=== PATIENT | female | born 1945 | race Caucasian/White ===

== ENCOUNTER 2017-03-15 14:05 | Emergency (ER) | payer MEDICARE, BC ==
--- NOTE | ~2017-03-15 | CR127 ---
[facility] A Service of [facility] RADIOLOGY TEXT RESULTS PATIENT: DHAVAL WARD LOCATION: SED : 45 UNIT #: [id number] AGE: [address]: Tj Kimball MD SEX: F ORDER DR: [id number] [address] [address] [id number] E MR#: [id number] Acc #: [id number] NAME: DHAVAL WARD : 1945 SEX: F STUDY DATE/TIME: 03/15/2017 14:25 UNIT: SED ROOM: STUDY DESCRIPTION: CR Foot Complete Min 3 View Rt Attending Physician: Tj Kimabll M.D. Ordering Physician: Tj Kimball M.D. Primary Care Physician: Kobe Montes M.D. MEDICAL IMAGING REPORT This report is preliminary unless electronic signature is present. EXAM Right foot series 03/15/2017 HISTORY Swelling, pain with knot on top of foot. Pain 2-3 days. Knot today. FINDINGS AP lateral and oblique radiographs of the right foot are presented. No traumatic fracture or malalignment. The joint spaces show mild interphalangeal joint narrowing. Mild degenerative change first metatarsophalangeal joint. No soft tissue defect, subcutaneous air or radiodense foreign body. Small plantar calcaneal spur. Dictated by... Charli Bergeron M.D. THIS IS AN ELECTRONICALLY VERIFIED REPORT Charli Bergeron M.D. at 03/16/2017 10:48 PM LUCILA/juana TD: 03/15/2017 23:39 JOB #: [id number] MEDICAL IMAGING REPORT Page 1 of 1
[~2017-03-15 14:05] MED LIST: ADVAIR 2501 DISK W/D PO; ASPIRIN PO; BACTRIM DS TABL1 TA1 PO; CRESTOR10 MG; LIPITOR PO; PROTONIX PO; SYNTHROID PO; VOLTAREN50 MG PO
== END 2017-03-15 15:31 | disposition home or self-care (01) ==
LOC: SED 14:05
DX: M19.071 Primary osteoarthritis, right ankle and foot (principal); R03.0 Elevated blood-pressure reading, without diagnosis of hypertension; E78.5 Hyperlipidemia, unspecified; J45.909 Unspecified asthma, uncomplicated; Z88.0 Allergy status to penicillin; Z79.899 Other long term (current) drug therapy
CPT/HCPCS: 73630; 99283